=== PATIENT | male | born 1945 | race American Indian/Alaskan Native ===

== ENCOUNTER 2020-11-20 08:00 | Outpatient (CLI) | payer OTHER | END 2020-11-20 08:30 | disposition home or self-care (01) | LOC: PPH VACUNA 08:00 | DX: Z23 Encounter for immunization (principal) ==

== ENCOUNTER 2020-12-20 21:51 | Emergency (ER) | payer OTHER ==
[~2020-12-20] VITALS: Ht 177.8 cm; Wt 101.6 kg
[2020-12-20] MEDS ORDERED: HYZAAR 100-12.1 EACH PO (22:17)
[2020-12-20] MEDS ORDERED: JANTOVEN4 MG PO (22:17)
[2020-12-21] MEDS ORDERED: MUPIROCIN15 GM TOP (00:25)
[2020-12-21] MEDS ORDERED: NORFLEX100MG PO (00:25)
[2020-12-21] MEDS ORDERED: ACETAMINOPHEN650 M2 PO (00:25)
== END 2020-12-21 00:45 | disposition home or self-care (01) ==
LOC: ER 21:51
DX: S00.83XA Contusion of other part of head, initial encounter (principal); S30.0XXA Contusion of lower back and pelvis, initial encounter; W18.39XA Other fall on same level, initial encounter; Y93.89 Activity, other specified; Y92.511 Restaurant or cafe as the place of occurrence of the external cause; Y99.8 Other external cause status; R42 Dizziness and giddiness

== ENCOUNTER 2021-03-15 13:18 | Outpatient (CLI) | payer OTHER ==
[~2021-03-15 13:18] MED LIST: ACETAMINOPHEN650 M2 PO; HYZAAR 100-12.1 EACH PO; JANTOVEN4 MG PO; MUPIROCIN15 GM TOP; NORFLEX100MG PO
== END 2021-03-15 13:34 | disposition home or self-care (01) ==
LOC: LAB 13:18
PROVIDERS: ATTEND Emergency Medicine Pediatric Emergency Medicine
DX: Z20.828 Contact with and (suspected) exposure to other viral communicable diseases (principal); Z11.52 Encounter for screening for COVID-19; Z20.822 Contact with and (suspected) exposure to COVID-19

== ENCOUNTER 2021-06-19 08:00 | Outpatient (CLI) | payer OTHER | END 2021-06-19 08:30 | disposition home or self-care (01) | LOC: PPH VACUNA 08:00 | PROVIDERS: ATTEND Emergency Medicine Pediatric Emergency Medicine | DX: Z23 Encounter for immunization (principal) ==

== ENCOUNTER 2021-12-03 12:18 | Outpatient (CLI) | payer OTHER | END 2021-12-03 12:28 | disposition home or self-care (01) | LOC: PPH VACUNA 12:18 | PROVIDERS: ATTEND Emergency Medicine Pediatric Emergency Medicine | DX: Z23 Encounter for immunization (principal) ==

== ENCOUNTER 2022-07-30 | Outpatient (CLI) | payer OTHER | END 2022-07-30 00:15 | disposition home or self-care (01) | LOC: PPH VACUNA | PROVIDERS: ATTEND Emergency Medicine Pediatric Emergency Medicine | DX: Z23 Encounter for immunization (principal) ==